=== PATIENT | female | born 1935 | race Caucasian/White ===

== ENCOUNTER 2016-11-03 01:41 | Observation (INO) | payer OTHER ==
[2016-11-03] MEDS ORDERED: NS 1,000 ML IV ONE (01:44)
--- NOTE | 2016-11-03 01:44 | EDPHY ---
H & P HPI/ROS: HPI CHIEF COMPLAINT: Left arm and left leg weakness now resolved HISTORY OF PRESENT ILLNESS: This patient very pleasant 81-year-old female she presents to the emergency room by EMS for left-sided weakness left upper extremity and left lower extremity weakness. Patient tells me she is unsure exactly what time this started but she thinks it started around 09/1930. She called 911 as she tells me that the left side of her body felt wobbly and weak. She states the symptoms have now resolved. She denies any focal weakness anywhere, numbness or tingling she denies chest pain, shortness of breath or headache. She has no known cardiac history or neurological history. No history of strokes. She is not on any blood thinners. Upon arrival here in the emergency room I did read the ambulance and the ambulance [place] as she was paged out as a stroke alert however her symptoms have resolved and her neurological exam upon arrival is unremarkable there is no weakness. She has no complaints at this time. Her NIH stroke scale upon arrival to the emergency room at 1:42 a.m. is 0 Past Medical History: Anxiety, asthma, GERD, hyperlipidemia Past Surgical History: Denies significant surgical history Social History: Lives independently alone in a private residence Family History: Noncontributory ROS REVIEW OF SYSTEMS: A comprehensive 10 point review of systems is otherwise negative aside from elements mentioned in the history of present illness. Exam Constitutional triage nursing summary reviewed, vital signs reviewed, awake/ alert. Eyes normal conjunctivae and sclera, EOMI, PERRLA. HENT normal inspection, atraumatic, moist mucus membranes, no epistaxis, neck supple/ no meningismus, no raccoon eyes. Respiratory clear to auscultation bilaterally, normal breath sounds, no respiratory distress, no wheezing. Cardiovascular rate normal, regular rhythm, no murmur, no edema, distal pulses normal. Gastrointestinal soft, non-tender, no rebound, no guarding, normal bowel sounds, no distension, no pulsatile mass. Genitourinary no CVA tenderness. Musculoskeletal no midline vertebral tenderness, full range of motion, no calf swelling, no tenderness of extremities, no meningismus, good pulses, neurovascularly intact. Skin pink, warm, & dry, no rash, skin atraumatic. Neurologic specifically this patient's neurological exam is unremarkable she has no focal weakness anywhere she has good statistical engineer strength bilaterally, good strength 5/5 in her left lower extremity and right lower extremity, 5/5 strength right upper and left upper extremity, cranial nerves are all intact, no decrease in sensation, awake, alert and oriented x 3, AAOx3, moves all 4 extremities equally, motor intact, sensory intact, CN II-XII intact, normal cerebellar, normal vision, normal speech. Psychiatric normal mood/affect. Heme/Lymph/Immune no lymphadenopathy. Differential Diagnosis: includes but is not limited to in a particular order, TIA, ACS, dehydration, electrolyte abnormality, cardiac arrhythmia Medical Decision Making: This patient had an IV established she will have a CT scan of her head without contrast and CT angiogram head and neck due to her symptoms that are now resolved of left upper and left lower extremity weakness. Given that her symptoms resolved in her NIH stroke scale is 0 upon arrival I have counseled her as a stroke alert as she no longer has symptoms. She will still have a stroke workup including EKG, blood work, troponin, CT scan will most likely need to be admitted for further evaluation at this time it appears she may have had a TIA. Re-evaluation: EKG interpretation by me on record in [employer] system. Impression time of EKG 1:52 a.m., this is sinus rhythm rate of 72, I do not appreciate acute ischemic changes specifically no ST elevation, ST depression, T-wave abnormality no prolonged intervals. CT scan of the head without IV contrast The results of the study are negative for acute infarct or bleed The study was read by Dr. Rossi. I viewed the images myself on the PACS system. CT scan of the angiogram head and neck. The results of the study are negative for significant acute disease The study was read by Dr. Rossi I viewed the images myself on the PACS system. ED x-ray chest one view negative for acute cardiopulmonary disease image interpreted by myself. 0253: re-examination at this time this patient is at her neurological baseline. I did speak with her son and [id number] at bedside they do tell me that she has a little bit of dementia and cognitive decline. They feel that she is at her neurological baseline. She is moving everything appropriately, no weakness, her CT head and CT angiogram head and neck are unremarkable for acute stroke. Her NIH stroke scale remained 0 she has no focal deficit this time. I did update her she understands she will be admitted to the hospital for further evaluation of left-sided weakness that is now resolved most likely TIA. Source: Patient, EMS - Personal History Tetanus Vaccine Date: UNSURE Constitutional: Initial Vital Signs Temperature (C) 36.5 C 11/03/16 01:45 Heart Rate 75 11/03/16 01:45 Respiratory Rate 18 11/03/16 01:45 Blood Pressure 189/76 H 11/03/16 01:45 O2 Sat (%) 94 11/03/16 01:45 O2 Delivery Mode Room Air Allergies/Adverse Reactions: No Known Allergies Allergy (Unverified 10/30/12 12:54) Home Medications: Medication Instructions Recorded Albuterol Sulfate [Proventil Hfa] 2 puffs IH BID 10/30/12 Fluticasone/Salmeter 500/50Mcg 1 puffs IH BIDI 10/30/12 [Advair 500/50 (RX)] Herb/Supp 10/30/12 Levothyroxine [Synthroid 50 mcg 50 mcg PO DAILY06 10/30/12 (RX)] Nortriptyline HCl 10 mg PO HS 10/30/12 Pharmacy Complete 10/30/12 10/30/12 Ranitidine HCl [Ranitidine HCl 300 300 mg PO HS 10/30/12 mg] Simvastatin [Zocor 10 mg (RX)] 10 mg PO DAILY18 10/30/12 Medical Decision Making - Data Points Laboratory Results: Laboratory Results 11/03/16 01:50 11/03/16 01:50 11/03/16 01:50 WBC 5.99 10^3/uL (3.80-9.50) RBC 4.31 10^6/uL (4.18-5.33) Hgb 13.2 g/dL (12.6-16.3) POC Hgb 13.6 gm/dL (12.3-15.9) Hct 40.0 % (38.0-47.0) POC Hct 40 % (35.5-47.5) MCV 92.8 fL (81.5-99.8) MCH 30.6 pg (27.9-34.1) MCHC 33.0 g/dL (32.4-36.7) RDW 14.2 % (11.5-15.2) Plt Count 251 10^3/uL (150-400) MPV 9.5 fL (8.7-11.7) Neut % (Auto) 55.3 % (39.3-74.2) Lymph % (Auto) 30.1 % (15.0-45.0) [place] % (Auto) 8.7 % (4.5-13.0) Eos % (Auto) 3.8 % (0.6-7.6) Baso % (Auto) 0.8 % (0.3-1.7) Nucleat RBC Rel Count 0.0 % (0.0-0.2) Absolute Neuts (auto) 3.31 10^3/uL (1.70-6.50) Absolute Lymphs (auto) 1.80 10^3/uL (1.00-3.00) Absolute Monos (auto) 0.52 10^3/uL (0.30-0.80) Absolute Eos (auto) 0.23 10^3/uL (0.03-0.40) Absolute Basos (auto) 0.05 10^3/uL (0.02-0.10) Absolute Nucleated RBC 0.00 10^3/uL (0-0.01) Immature Gran % 1.3 H % (0.0-1.1) Immature Gran # 0.08 10^3/uL (0.00-0.10) PT 12.6 SEC (12.0-15.0) INR 0.95 (0.83-1.16) APTT 27.0 SEC (23.0-38.0) POC Sodium 143 mEq/L (134-144) Sodium 145 H mEq/L (134-144) POC Potassium 3.5 mEq/L (3.3-5.0) Potassium 3.7 mEq/L (3.5-5.2) POC Chloride 110 H mEq/L (96-108) Chloride 110 mEq/L (97-110) Carbon Dioxide 23 mEq/l (22-31) Anion Gap 12 mEq/L (8-16) POC BUN 20 mg/dL (7-23) BUN 19 mg/dL (7-23) Creatinine 0.7 mg/dL (0.6-1.0) POC Creatinine 0.7 mg/dL (0.6-1.2) Estimated GFR > 60 Glucose 100 mg/dL (70-100) POC Glucose 101 H mg/dL (70-100) Calcium 9.6 mg/dL (8.5-10.4) Magnesium 2.0 mg/dL (1.6-2.3) Total Bilirubin 0.4 mg/dL (0.1-1.4) Conjugated Bilirubin 0.3 mg/dL (0.0-0.5) Unconjugated Bilirubin 0.1 mg/dL (0.0-1.1) AST 32 IU/L (14-46) ALT 34 IU/L (9-52) Alkaline Phosphatase 89 IU/L (38-126) Creatine Kinase 74 IU/L (0-156) CK-MB (CK-2) Fraction 1.20 ng/mL (0-3.19) Troponin I < 0.012 ng/mL (0-0.034) NT-Pro-B Natriuret Pep 89 pg/mL (0-450) Total Protein 7.1 g/dL (6.3-8.2) Albumin 4.0 g/dL (3.5-5.0) Lipase 225.0 IU/L (23-300) Medications Given: Discontinued Medications Sodium Chloride (Ns) 1,000 mls @ 0 mls/hr IV ONCE ONE PRN Reason: As Directed Stop: 11/03/16 01:45 Last Admin: 11/03/16 01:54 Dose: 1,000 mls Point of Care Test Results: 11/03/16 01:50 POC Sodium 143 POC Potassium 3.5 POC Chloride 110 H POC BUN 20 POC Creatinine 0.7 POC Glucose 101 H Departure - Departure Disposition: [facility] Inpatient Acute Clinical Impression: TIA (transient ischemic attack) Qualifiers: Transient cerebral ischemia type: unspecified Qualifier Code: (G45.9) Transient cerebral ischemic attack, unspecified Condition: Fair
[2016-11-03] MEDS ORDERED: IOPAMIDOL (ISOVUE 370) 100 ML BTL IV ONE ×2 (01:48→02:00)
--- NOTE | 2016-11-03 01:53 | CPEKG ---
Heart Rate: 72 RR Interval: 833 P-R Interval: 204 QRSD Interval: 82 QT Interval: 408 QTC Interval: 447 P [place]: 89 QRS [place]: 24 T Wave [place]: 43 EKG Severity - BORDERLINE ECG - EKG Impression: SINUS RHYTHM EKG Impression: PROBABLE LEFT ATRIAL ABNORMALITY Electronically Signed By: Edgar De Jesus 04-Nov-2016 04:14:35
[2016-11-03 02:12] LABS: % IMMATURE GRANULYOCYTES 1.3 % (0.0-1.1); ABSOLUTE IMMATURE GRANULOCYTES 0.08 10^3/uL (0.00-0.10); ADD DIFF? NO; ADD MORPH? NO; ADD SCAN? NO; ATYPICAL LYMPHOCYTE FLAG 10 (0-99); FRAGMENT RBC FLAG 0 (0-99); HEMOGLOBIN 13.2 g/dL (12.6-16.3); LEFT SHIFT FLG 10 (0-99); LIPEMIA HEMOLYSIS FLAG 80 (0-99); MEAN CELL HEMOGLOBIN 30.6 pg (27.9-34.1); MEAN CELL VOLUME 92.8 fL (81.5-99.8); MEAN PLATELET VOLUME 9.5 fL (8.7-11.7); PLATELET CLUMPS FLAG 20 (0-99); PLATELET COUNT 251 10^3/uL (150-400); RED BLOOD CELL COUNT 4.31 10^6/uL (4.18-5.33); RED CELL DISTRIBUTION WIDTH 14.2 % (11.5-15.2)
[2016-11-03 02:14] LABS: ALANINE AMINOTRANSFERASE 34 IU/L (9-52); ALKALINE PHOSPHATASE 89 IU/L (38-126); ANION GAP 12 mEq/L (8-16); ASPARTATE AMINOTRANSFERASE 32 IU/L (14-46); BILIRUBIN,TOTAL 0.4 mg/dL (0.1-1.4); BILIRUBIN-CONJUGATED 0.3 mg/dL (0.0-0.5); BILIRUBIN-UNCONJUGATED 0.1 mg/dL (0.0-1.1); CALCIUM 9.6 mg/dL (8.5-10.4); CARBON DIOXIDE 23 mEq/l (22-31); CHLORIDE 110 mEq/L (97-110); CREATININE 0.7 mg/dL (0.6-1.0); GLOMERULAR FILTRATION RATE > 60; GLUCOSE 100 mg/dL (70-100); POTASSIUM 3.7 mEq/L (3.5-5.2); SODIUM 145 mEq/L (134-144); TOTAL PROTEIN 7.1 g/dL (6.3-8.2)
[2016-11-03 02:26] LABS: INR 0.95 (0.83-1.16); PROTIME(PATIENT) 12.6 SEC (12.0-15.0)
[2016-11-03 02:29] LABS: TROPONIN I < 0.012 ng/mL (0-0.034)
[2016-11-03] MEDS ORDERED: ACETAMINOPHEN 325 MG TAB PO PRN (03:58)
[2016-11-03] MEDS ORDERED: ONDANSETRON 4 MG/2 ML VIAL IVP PRN (03:58)
--- NOTE | 2016-11-03 04:26 | GHP ---
[f rep st] HISTORY AND PHYSICAL DATE OF ADMISSION: 11/03/2016 CHIEF COMPLAINT: Left-sided weakness. HISTORY OF PRESENT ILLNESS: The patient is an 81-year-old female who had left upper and left lower e xtremity weakness at home. She lives independently. She called 911. On arrival to the emergency ro , her symptoms had totally resolved. History is vague as the patient does have some cognitive issu es and dementia. She describes it as a "bad feeling," and then she had a feeling that "again she fel t spongy." She was able to walk, and she did not have a complete hemiparesis. She did feel wobbly o n her feet. She now appears to be back to baseline. Her family is at bedside and confirms this is h er normal state. She does not take a daily aspirin. PAST MEDICAL HISTORY: 1. Dementia. 2. GERD. 3. Asthma. MEDICATIONS: Please see computer record for full detailed list. ALLERGIES: No known drug allergies. SOCIAL HISTORY: No smoking. One alcoholic beverage per day. She lives alone. REVIEW OF SYSTEMS: Complete review of systems obtained. Review of systems is negative regarding con stitutional, HEENT, GI, pulmonary, cardiovascular, , hematologic, musculoskeletal, endocrine, psych , except for positive pertinents as noted in HPI. FAMILY HISTORY: Reviewed, noncontributory to presenting complaint. PHYSICAL EXAMINATION: GENERAL: Well-developed, well-nourished female in no acute distress. VITAL S IGNS: Temperature is 36.5, pulse 66, blood pressure is 110/63, saturating 96% on 2 L. EYES: Normal conjunctivae. Pupils react to light. ENT: Normal ears and nose. Hearing intact. Normal teeth. Oropharynx moist. NECK: Trachea midline. No thyromegaly. CHEST: Normal respiratory effort. LUNG S: Clear to auscultation bilaterally. CARDIOVASCULAR: Regular rhythm. No murmur. No lower extrem ity edema. ABDOMEN: Soft, nontender. No hepatosplenomegaly. SKIN: Warm, dry, intact, without suzanna h. MUSCULOSKELETAL: No cyanosis or clubbing. NEUROLOGIC: Strength is 5/5 upper and lower extremit ies. Cranial nerves intact. Normal sensation to light touch. PSYCH: Awake, alert, oriented. Norm al mood and affect. Normal judgment and insight. Normal memory. Some slight short-term memory prob maday but otherwise quite appropriate. LABS: White count 5.99, hematocrit 40.0, platelets 251. Sodium 145, potassium 3.7, chloride 110, bi carb 23, BUN 19, creatinine 0.7, glucose 100. LFTs are normal. Troponins negative. BNP is 89. INR 0.95. EKG reviewed by me. My personal interpretation is normal sinus rhythm. No ST- or T-wave changes. C hest x-ray is negative. Head CT is negative. CT angiogram of the head and neck is negative. ASSESSMENT/PLAN: 1. Transient ischemic attack. She had transient left-sided weakness, and she presented to the ER as a stroke alert; however, symptoms had all resolved by the time she arrived. We will check an MRI of her brain. We will check an echocardiogram and monitor on telemetry. We will start her on a daily aspirin and check a lipid panel. Will consult PT/OT. 2. Dementia. This is mild, and she has returned to baseline. 3. Asthma. This is stable. COR STATUS: Full, although she would not want prolonged resuscitation. ADMISSION STATUS: Observation. She may go home tomorrow after TIA workup complete. DVT PROPHYLAXIS: She is at high risk. Will place her on subcu Lovenox. /[id number]/MODL
[2016-11-03 06:28] LABS: TROPONIN I < 0.012 ng/mL (0-0.034)
[2016-11-03 08:00] LABS: COLOR PALE YELLOW; LEUKOCYTE ESTERASE,URINE 3+ (NEGATIVE); NITRITE,URINE POSITIVE (NEGATIVE)
[2016-11-03 08:11] LABS: WBC,URINE 25-50 /hpf (0-3)
[2016-11-03 08:16] LABS: BACTERIA 2+ /hpf (NONE SEEN)
[2016-11-03] MEDS ORDERED: SENNOSIDES 1 TAB PO PRN (08:31)
[2016-11-03] MEDS: ASPIRIN 325 MG TAB PO SCH (08:36)
[2016-11-03] MEDS: ENOXAPARIN 40 MG/0.4 ML SYR SC SCH (08:36)
[2016-11-03] MEDS: CHOLECALCIFEROL VIT D3 1,000 UNITS TAB PO SCH (08:58)
[2016-11-03] MEDS: LEVOTHYROXINE 50 MCG TAB PO SCH (08:58)
[2016-11-03] MEDS ORDERED: Herbals/Supplements -Info Only PO SCH (09:00)
[2016-11-03] MEDS: FLUTICASONE/SALMETER 500/50MCG DISKUS IH SCH ×2 (10:00→20:50)
--- NOTE | 2016-11-03 10:43 | DX ---
AP chest x-ray 0154 hours. History: Chest pain. Findings: Comparison to October 30, 2012. Heart size remains within normal limits. Pulmonary vasculature is mildly prominent centrally. There i s mild peribronchial cuffing in the perihilar region right-side more than left. There is no consolida tion, effusion, or pneumothorax. The lungs are mildly hyper expanded similar to the prior study. Osse ous structures are unchanged. Impression: 1. Mild peribronchial cuffing in the perihilar region right-side greater than left. Findings are nons pecific but can be seen with bronchitis, viral process, or reactive airways disease. 2. Hyperexpanded lungs similar to the prior study compatible with underlying mild COPD.
--- NOTE | 2016-11-03 10:55 | MR ---
MRI of the Brain (Without Contrast) at 0932 hour Clinical Indication: TIA symptoms. Left-sided weakness has resolved.. Technique: T1-weighted images were acquired axially and sagittally from the foramen magnum to the ve rtex. Axial fast inversion recovery, fast T2-weighted, susceptibility weighted imaging, and diffusio n-weighted axial images were obtained without contrast. Findings: The ventricles, cisterns, and sulci are widened consistent with atrophy. No hydrocephalus, midline shift, herniation, or epidural/subdural hematomas. There is a small focus of signal void on susceptibility weighted imaging compatible with small focus of hemorrhage right anterior occipital lo be. This focus is less apparent on T1 and T2 weighted imaging. No abnormality seen in this location o n prior CT head or CT angiogram study of the head. No additional possible intracranial hemorrhage or mass. Diffusion weighted sequence demonstrates no acute infarct. Cerebellar tonsils are in normal pos ition. Pituitary gland is normal in size. Normal signal flow-void in the superior sagittal sinus, bas ilar artery, and bilateral internal carotid arteries indicating patency. Paranasal sinuses and mastoi d air cells are clear. Scattered hyperintense T2/FLAIR signal foci throughout bilateral cerebral whit e matter. Impression: 1. Mild to moderate age related cerebral atrophy. 2. A few nonspecific hyperintense T2/FLAIR signal abnormalities in the white matter of bilateral fron flaco and parietal lobes. Differential diagnosis includes microvascular ischemic disease, post-infectio us/post-inflammatory sequela, atypical demyelinating disease, or migraine-related sequela. 3. No acute infarct, hydrocephalus, mass effect, or herniation. 4. Small focus of signal void on susceptibility weighted imaging right anterior occipital lobe compat ible with small focus of blood products. This could represent tiny incidental occult vascular malform ation versus sequela from previous trauma with deposition of blood products.
--- NOTE | 2016-11-03 11:57 | HOSPPROG ---
Hospitalist Progress Note Assessment/Plan: 81y female with c/o weakness. Reviewed with Dr Goodwin. Cont TIA workup. Pt resting comfortably. Weakness resolved Baseline dementia Potentially home in 1-2 days. Objective: Vital Signs Temp Pulse Resp BP Pulse Ox 36.8 C 65 18 130/77 H 97 11/03/16 07:39 11/03/16 07:39 11/03/16 07:39 11/03/16 07:39 11/03/16 07:39 11/02/16 11/03/16 11/04/16 05:59 05:59 05:59 Intake Total 1090 Output Total 300 Balance 1090 -300 PT 12.6 SEC (12.0-15.0) 11/03/16 01:50 INR 0.95 (0.83-1.16) 11/03/16 01:50 - Physical Exam Constitutional: no apparent distress, not in pain Eyes: PERRL Ears, Nose, Mouth, Throat: moist mucous membranes, ears appear normal Cardiovascular: No JVD Respiratory: no respiratory distress Skin: warm, normal color Psychiatric: not anxious, not encephalopathic ICD10 Worksheet Patient Problems: Problems Problem Status Diagnosed TIA (transient ischemic attack) Acute Asthma without status asthmaticus Active Esophageal dysmotility Active
--- NOTE | 2016-11-03 13:51 | ECHO ---
[id number] + + [address] : : [place] [address] : : [phone] + + Adult Echocardiographic Report + + :Name: GALEN MIKEindiarenata Date: 11/03/2016 12:04 PM : : Hospital Admission Number: [id number] : :: 1935 Gender: Female Height: 64 in : :Age: 81 yrs Race: WH Weight: 118 lb : :Reason For Study: source of emboli : : BSA: 1.6 meters2: :History: tia : + + MMode/2D Measurements & Calculations IVSd: 0.69 cm RVDd: 2.3 cm FS: 35.5 % Ao root diam: LVPWd: 0.87 cm LVIDd: 3.6 cm EDV(Teich): 2.4 cm LVIDs: 2.3 cm 54.1 ml LA dimension: ESV(Teich): 3.1 cm 18.5 ml EF(Teich): 65.8 % LVLd ap4: 7.0 cm SV(MOD-sp4): EDV(MOD-sp4): 41.0 ml 65.0 ml LVLs ap4: 5.8 cm ESV(MOD-sp4): 24.0 ml EF(MOD-sp4): 63.1 % Normal Measurement Values: + + :LVIDd (3.5-5.7cm) IVSd (0.6-1.1cm) LVPWd (0.6-1.1cm) Aortic Root (2.0-3.7cm)Left Atrium (1.5-4.0cm): :LV Vol(d) (76-115ml) LV Vol(s) (29-48ml) Ejec Fraction (50-65%)PV Jimmy (0.6- 1.2m/s) TV Jimmy (0.4-1.0m/s) : :MV E Jimmy (0.8-1.0m/s)MV A Jimmy (0.3-1.0m/s)LVOT Jimmy (0.7-1.2m/s) Asc Ao Jimmy ( 0.9-1.8m/s) : + + Doppler Measurements & Calculations MV E max jimmy: Ao V2 max: LV V1 max: PA V2 max: 77.0 cm/sec 171.9 cm/sec 81.4 cm/sec 76.6 cm/sec MV A max jimmy: Ao max PG: LV V1 max PG: PA max P.0 cm/sec 11.8 mmHg 2.7 mmHg 2.3 mmHg MV E/A: 1.0 MV dec time: 0.26 sec RAP systole: 10.0 mmHg Left Ventricle The left ventricle is normal in size and function. There is normal left ventricular wall thickness. Ejection Fraction = 65%. No regional wall motion abnormalities noted. Right Ventricle The right ventricle is normal in size and function. Atria The left atrial size is normal. Right atrial size is normal. A dilated inferior vena cava suggests increased right atrial pressure. Mitral Valve The mitral valve is normal in structure and function. There is no mitral valve stenosis. There is mild mitral regurgitation. Tricuspid Valve The tricuspid valve is normal in structure and function. There is no tricuspid stenosis. There is trace to mild tricuspid regurgitation. Unable to estimate RVSP due to inadequate TR signal. Aortic Valve The aortic valve is trileaflet. There is mild aortic valve calcification. There is no aortic stenosis. There is no aortic insufficiency. Pulmonic Valve The pulmonic valve is not well visualized. Great Vessels The aortic root is not well visualized. Pericardium/Pleural There is no pericardial effusion. Conclusion A two-dimensional transthoracic echocardiogram with M-mode and Doppler was performed. There is no obvious source of embolus identified. If one is highly clinically suspected, then transesophageal echocardiography should be considered. The left ventricle is normal in size and function. Ejection Fraction = 65%. Normal appearing valvular structures. There is mild mitral regurgitation. There is trace to mild tricuspid regurgitation. Unable to estimate RVSP due to inadequate TR signal. The aortic root is not well visualized. Final Reading Physician: Raciel Reddy signed on 11/03/2016 01:50 PM Ordering Physician: Sofia Pastor Performed By: Courtney Aguilera
--- NOTE | 2016-11-03 14:05 | CT ---
CT Head (Without Contrast) November 03, 2016 Indication: Transient left-sided weakness. Technique: Standard noncontrast head CT protocol utilizing 5 mm thick collimated slices and field of view of 23 cm. Dose reduction techniques were utilized. Comparison: Head CT dated December 09, 2012. Findings: No intracranial hemorrhage, mass lesion, swelling, or extraaxial fluid collection. The isacc tricles are normal caliber and midline. The huitron and white matter has normal attenuation. No evidence of acute ischemia. Minimal atrophy and minimal periventricular low-attenuation white matter disease in the frontal and parietal lobes is unchanged. The bones are unremarkable. The paranasal sinuses are clear. Impression: Negative. No acute intracranial hemorrhage, subdural hematoma, or evidence of ischemia. The study was performed as an emergency on-call case and discussed by telephone with Dr. De Jesus at 2 :39 a.m. The final interpretation is concordant with the original communication.
--- NOTE | 2016-11-03 14:28 | CT ---
CT Angiography of the Head November 03, 2016 Clinical Indications: Transient left-sided weakness. R29.818 - Neurological changes strongly suggesti ng intracerebral aneurysm. Technique: During automated power injection of 75 mL of Isovue-370, thinly collimated spiral (volume tric) multidetector helical imaging was performed through the head. Independent three-dimensional [employer] workstation was used for additional manipulations of images by the radiologist. Dose reduction techniques were utilized. Findings: The anterior and posterior circulation is normal. No occlusion, filling defect, aneurysm, or vascular malformation. The intracranial venous system is normally opacified. No sagittal sinus thr ombosis. No enhancing intracranial mass. Impressions: 1. Normal arterial circulation. No evidence of embolic disease. 2. No sagittal sinus thrombosis. The study was performed as an emergency on-call case and discussed by telephone with Dr. De Jesus at 2 :50 a.m. The final interpretation is concordant with the original communication.
--- NOTE | 2016-11-03 14:38 | CT ---
CT Angiography of the Neck (With Contrast) November 03, 2016 Clinical Indications: Stroke alert. Transient unilateral left-sided weakness. Technique: During IV administration of 75 mL of Isovue-370 intravenously, helical multidetector data acquisition was obtained from the upper thorax cephalad through the skull base. The thinly collimate d data were manipulated in multiple projections on the 3D computer workstation by the radiologist. Do se reduction techniques were utilized. Findings: The cervicothoracic aorta is normal caliber and gives rise to normal four-vessel neck lili josiah. The carotid and vertebral arteries are widely patent. No dissection, occlusion, or ulcerated osman que. Eccentric calcified plaque in the right carotid bulb results in less than 20% stenosis of the or igin of the right internal carotid artery. Eccentric plaque in the left carotid bulb results in less than 10% narrowing of the carotid bulb and origin of the left internal carotid artery. Lung apices have diffuse mild peribronchial thickening and a partially obscured 1 cm groundglass nodu le in the superior segment left lower lobe on image 21 of series 5. No enlarged lymph node or mass th roughout the neck. The left half of the thyroid gland has been surgically removed. Impression: 1. Widely patent carotid and vertebral arteries. Mild bilateral carotid plaque results in no signific ant stenosis. 2. No lymphadenopathy or mass. 3. Indeterminate 1-cm groundglass nodule superior segment left lower lobe. Recommend follow-up noncon trast chest CT in six months to assure resolution. The study was performed as an emergency on-call case and discussed by telephone with Dr. De Jesus at 2 :50 a.m. The final interpretation is concordant with the original communication. Note: All stenoses are calculated using NASCET criteria.
--- NOTE | 2016-11-03 15:12 | GCON ---
[f rep st] CONSULTATION INPATIENT NEUROLOGY CONSULTATION NOTE DATE OF CONSULTATION: 11/03/2016 CHIEF COMPLAINT: Transient left-sided weakness. HISTORY OF PRESENT ILLNESS: This is an 81-year-old female with a prior diagnosis of dementia. 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 The patient says she cannot remember the event and does say she thinks she was c onfused at that time. She was brought to [facility] Emergency Room, but when she arr ived there her symptoms had all resolved. The patient states these symptoms have never occurred befo re or since. Her daughter is with her and does state that patient has some dementia at baseline. Cu rrently, the patient is normal with an NIH Stroke Scale of 0, although she did become slightly confus ed at times by the date, although she knew the month. REVIEW OF SYSTEMS: A 10-point review of systems was negative, except for what was placed in the HPI. PAST MEDICAL HISTORY: Dementia, GERD, asthma. SOCIAL HISTORY: No tobacco. FAMILY HISTORY: Noncontributory. PHYSICAL EXAM: VITAL SIGNS: Blood pressure 130/77, heart rate 65, respirations 18, saturating 97% o n room air, temperature 36.5 degrees Celsius, in normal sinus rhythm. GENERAL: In no acute distress . EYES: Funduscopic exam: Could not visualize optic discs. LUNGS: Clear to auscultation bilatera lly. No rhonchi or rales. HEART: Regular rate and rhythm. No murmurs. No carotid bruits ausculta ronald. NEUROLOGIC EXAM: 1. Mental status: Alert and oriented to person, place, month and year, but not exact date. 2. Memory: Appears slightly impaired to short-term memory, although overall fairly intact. Long-te rm memory intact. 3. Attends well. No speech problems. 4. Cranial nerves: Pupils equal, round, reactive to light. Visual castro full to confrontation. E xtraocular muscles intact. Bilateral face intact to sensation and motor movement. Hearing intact to conversation. Uvula raises symmetrically. Tongue protrudes midline. Traps 5/5 strength. 5. Motor exam: Normal tone and strength in all 4 extremities. 6. Sensory exam: All 4 extremities intact to light touch. 7. Reflexes: Bilateral biceps, brachioradialis, patellae 2/4. 8. Coordination: Bilateral [id number], ixlt-si-datc, rapid alternating movements are normal. 9. Gait: Deferred. 10. NIH stroke scale: 0. LABORATORY DATA: 1. Labs November 03, 2016:. a. CBC unremarkable. Coagulation panel unremarkable. b. UA with 3+ leukocyte esterase and positive nitrites. c. CMP has a sodium of 145, TSH normal, troponin negative. 2. Radiology November 03, 2016:. a. A head CT shows no acute changes. I personally visualized this study. b. A CT angiogram of the head and neck shows no significant arterial problems. There is an incident ally noted pulmonary nodule. ASSESSMENT: 1. Transient left arm and leg weakness in the setting of confusion on November 03, 2016: Differential diagnosis includes transient ischemic attack versus acute confusional state from ing or a pos sible urinary tract infection. I will proceed with a stroke evaluation. 2. Preexisting dementia. 3. Positive urinalysis concerning for possible urinary tract infection. 4. Incidentally noted pulmonary nodule. RECOMMENDATIONS: 1. For incidentally imaged pulmonary nodule, refer to outpatient primary care provider. 2. Brain MRI without contrast. 3. Transthoracic echocardiogram. 4. 24-hour telemetry. 5. Lipid panel. 6. HbA1c. 7. Urine culture. 8. Blood pressure goal less than 220/120. It MRI excludes active stroke, then blood pressure goal i s less than 140/90. 9. Begin aspirin 325 mg daily. Neurology service will continue to follow closely. I suspect that most likely the patient will be ab le to be discharged tomorrow. Dr. Diop will be assuming care of this service tomorrow. /[id number]/MODL
[2016-11-03 20:19] VITALS: RESP 16
[2016-11-03] MEDS ORDERED: MIRTAZAPINE 15 MG TAB PO SCH (21:00)
[2016-11-03] MEDS: ALBUTEROL 60 PUFFS/8 GM MDI IH PRN (21:16)
[2016-11-04] MEDS: LEVOTHYROXINE 50 MCG TAB PO SCH (04:32)
[2016-11-04 05:26] LABS: CHOLESTEROL 199 mg/dL (140-220); CHOLESTEROL/HDL RATIO 3.69 RATIO (1.00-4.44); HIGH DENSITY LIPOPROTEIN 54 mg/dL (40-85); LDL/HDL RATIO 2.39 RATIO (1.00-3.22); LOW DENSITY LIPOPROTEIN 129 mg/dL (80-100); NON-HIGH DENSITY LIPOPROTEIN 145 mg/dL (90-129); TRIGLYCERIDE 82 mg/dL (35-135); VERY LOW DENSITY LIPOPROTEINS 16 mg/dL (8-25)
[2016-11-04 07:44] VITALS: BP 132/68; PULSE 68; TEMP 97.9; O2SAT 92
[2016-11-04] MEDS: FLUTICASONE/SALMETER 500/50MCG DISKUS IH SCH (08:15)
[2016-11-04] MEDS: ENOXAPARIN 40 MG/0.4 ML SYR SC SCH (08:22)
[2016-11-04] MEDS: CHOLECALCIFEROL VIT D3 1,000 UNITS TAB PO SCH (08:22)
[2016-11-04] MEDS ORDERED: ASPIRIN EC 81 MG TAB PO SCH (09:00)
[2016-11-04] MEDS: ALBUTEROL 60 PUFFS/8 GM MDI IH PRN (09:13)
--- NOTE | 2016-11-04 09:24 | NEUROPROG ---
Assessment: BACKGROUND: 81 yo woman with a history of dementia who presented to our facility 11/03 with reported left arm and leg weakness described as "wobbly" and "spongy" per the record. Weakness had resolved prior to getting to the ED. INTERVAL HISTORY: 11/04: Patient not quite sure why she is here - denies ever having left-sided weakness/difficulty. States she thinks she's here for asthma attack. No neurologic complaints today. Eager to discuss her pulmonary situation with the hospitalist. EXAM: VS reviewed in EMR. SBPs 130s-150s last 24h. GEN: WDWN sitting in NAD HEENT: NCAT, no scalp tenderness, oropharynx clear CV: RRR s1 s2 wo m/r/c/g. Carotid pulses 2+ wo bruit NIHSS 0 MS: awake, alert, oriented to all spheres except date and situation. Speech nondysarthric. No language disturbance. Follows commands. Attends to both sides. Episodic memory impairment evident. Poor insight. Adequate fund of knowledge. CN: pupils 3mm round reactive. VFF. Primary gaze centered. Full ocular motility. Facial sensation preserved. Face symmetric. Palatoglossal movements intact. Shoulder shrug strong. MOTOR: normal bulk/tone. Fine postural tremor. Full power. SENSORY: intact LT/PP throughout and symmetric wo extinction COORD: no ataxia FN/HS REFLEX: plantars down. No clonus. DTRs 2+/4 GAIT: rises unassisted with normal gait pattern DATA: Labs reviewed in EMR LDL 129 A1c pending Urine culture pending UA with pos nitrite, LE, WBCs and bacteria MRI brain wo - global volume loss, subcortical chronic microvascular ischemic changes, nothing acute CTA head/neck - widely patent carotids, vertebrals and intracranial circulation TTE - preserved EF, no masses/thrombi, no bubble study done IMPRESSION: // ? LEFT ARM/LEG WEAKNESS - RESOLVED // DEMENTIA // BACTERURIA Patient with reported episode of vague left arm and leg dysfunction. Could have been a right hemispheric TIA, though, no obvious source identified. May be related to possible UTI (low brain reserve given dementia could manifest with neurologic signs, despite no symptoms). Could have also been confusional episode related to dementia. Regardless, will treat as if it was a TIA. - cont ASA 325mg daily - goal normotension - goal normoglycemia with A1c < 6.5 - add statin for LDL goal < 70 - stroke education provided including signs/symptoms and calling 911 at onset of neurologic deficit - PT/OT/WEB ANALYTICS DEVELOPER consult - investigation/management of bacteruria per primary team - delirium precautions while in hospital - OK for discharge from neuro perspective - followup with PCP for vascular risk factor management Objective: Vital Signs Temp Pulse Resp BP Pulse Ox 36.6 C 68 16 132/68 H 92 11/04/16 07:40 11/04/16 07:40 11/04/16 07:40 11/04/16 07:40 11/04/16 07:40 11/03/16 11/04/16 11/05/16 05:59 05:59 05:59 Intake Total 1090 800 Output Total 1875 Balance 1090 -1075 PT 12.6 SEC (12.0-15.0) 11/03/16 01:50 INR 0.95 (0.83-1.16) 11/03/16 01:50 Allergies/Adverse Reactions: No Known Allergies Allergy (Unverified 10/30/12 12:54)
[2016-11-04] MEDS ORDERED: SULFAMETHOX/TMP 800/160 MG 1 TAB PO ONE (09:53)
--- NOTE | 2016-11-04 09:53 | PDDCSUM ---
Discharge Summary Discharge Summary: Dates of service 11/03-11/04/16 Hospital course by problem: # TIA: presenting with transient left upper and lower extremity weakness, w/u including tele monitoring, echo, brain mri, head and neck CTA without acute findings. Sxs completely resolved. Neuro evaluated. Recommending asa 325 daily, LDL goal < 70 (started on statin), BP control. Reviewed care plan with patient and her daughter, they understand and plan to f/u at [facility] for ongoing mgmt. # UTI: patient with bacturia and cultures pending, no real urinary complaints however given presentation concern that there may be UTI contributing to her neuro complaints. Will treat with bactrim for a short course. # dementia: at baseline per her daughter, has issues with short term memory on evaluation # htn: only one reading elevated above goal for her while in house, will defer initiation of any bp meds for now and recommend she f/u with her pcp for ongoing mgmt # pulm nodule: non specific and noted on neck ct. Repeat imaging recommended in 6 months # RAD: no e/o acute exacerbation, continue usual mgmt Discharge required > 35 minutes of care, more than half in face to face discussion with patient and her daughter regarding f/u care plans
[2016-11-04] MEDS: ASPIRIN 325 MG TAB PO SCH (10:08)
== END 2016-11-04 12:03 | disposition home or self-care (01) ==
LOC: EDUNIT# → INTOOBSV 02:51 → F3N 03:23
PROVIDERS: ADMIT Internal Medicine; ATTEND Internal Medicine
DX: G45.9 Transient cerebral ischemic attack, unspecified (principal); N39.0 Urinary tract infection, site not specified; J45.909 Unspecified asthma, uncomplicated; K21.9 Gastro-esophageal reflux disease without esophagitis; F03.90 Unspecified dementia, unspecified severity, without behavioral disturbance, psychotic disturbance, mood disturbance, and anxiety; R91.1 Solitary pulmonary nodule; E78.00 Pure hypercholesterolemia, unspecified
CPT/HCPCS: 70450; 70496; 70498; 70551; 71010; 92523; 93005; 93306; 96360; 97161; 97165; 99285; G0378; J1650; Q9967; 82947-QW

== ENCOUNTER 2017-05-15 08:35 | Observation (INO) | payer OTHER ==
--- NOTE | 2017-05-15 08:47 | CPEKG ---
Heart Rate: 67 RR Interval: 896 P-R Interval: 192 QRSD Interval: 82 QT Interval: 416 QTC Interval: 439 P [place]: 79 QRS [place]: 44 T Wave [place]: 65 EKG Severity - NORMAL ECG - EKG Impression: SINUS RHYTHM Electronically Signed By: Cal Khoury 16-May-2017 14:14:13
[2017-05-15 09:02] LABS: ANION GAP 14 mEq/L (8-16); CALCIUM 9.5 mg/dL (8.5-10.4); CARBON DIOXIDE 21 mEq/l (22-31); CHLORIDE 112 mEq/L (97-110); CREATININE 0.8 mg/dL (0.6-1.0); GLOMERULAR FILTRATION RATE > 60; GLUCOSE 101 mg/dL (70-100); POTASSIUM 3.8 mEq/L (3.5-5.2); SODIUM 147 mEq/L (134-144)
--- NOTE | 2017-05-15 09:05 | EDPHY ---
H & P Stated Complaint: syncope HPI/ROS: Chief Complaint: Syncope HPI: 81-year-old woman who is been in her normal state health, had a syncopal event after her walk this morning. Patient states that she got up and felt normal. Went for usual 1 mile walk. Came back to her residence and was talking with someone outside. She then came in and had a syncopal episode in the hallway. Patient denies any preceding palpitations or chest pain. Does not have a history of syncope in the past. Denies a history of coronary artery disease. No family history of sudden cardiac . No recent illness. Patient did hit her head and is complaining of pain in the right side of the back of her head. She states that when she woke up she felt a little confused. On EMS arrival the patient was awake and alert. Patient states she still feels a bit confused. ROS: 10 point Review of Systems is negative except as noted in the HPI. PMH: Patient is unsure denies history of coronary artery disease, lung disease , kidney disease Social History: No smoking, no alcohol, no recreational drug use Family History: non-contributory Physical Exam: Gen: Awake, Alert, No Distress HEENT: She has a large scalp hematoma on her right occipital scalp with tenderness Nose: no rhinorrhea Eyes: PERRLA, EOMI Mouth: Moist mucosa Neck: Supple, no JVD Chest: nontender, lungs clear to auscultation Heart: S1, S2 normal, no murmur Abd: Soft, non-tender, no guarding Back: no CVA tenderness, no midline tenderness Ext: no edema, non-tender Skin: no rash Neuro: CN II-XII intact, Sensation grossly intact, Strength 5/5 in bilateral upper and lower extremities - Personal History Tetanus Vaccine Date: UNSURE - Medical/Surgical History Hx Asthma: Yes Hx Chronic Respiratory Disease: No Hx Diabetes: No Hx Cardiac Disease: No Hx Renal Disease: No Hx Cirrhosis: No Hx Alcoholism: No Hx HIV/AIDS: No Hx Splenectomy or Spleen Trauma: No Other PMH: asthma - Social History Smoking Status: Never smoked Constitutional: Initial Vital Signs Temperature (C) 36.7 C 05/15/17 08:42 Heart Rate 67 05/15/17 08:42 Respiratory Rate 18 05/15/17 08:42 Blood Pressure 147/82 H 05/15/17 08:42 O2 Sat (%) 95 05/15/17 08:42 O2 Delivery Mode Room Air Allergies/Adverse Reactions: No Known Allergies Allergy (Verified 05/15/17 08:42) Home Medications: Medication Instructions Recorded Albuterol [Proventil Inhaler HFA 1 - 2 puffs IH Q4H PRN 11/03/16 (*)] Cholecalciferol Vit D3 [Vitamin D3 1,000 units PO DAILY 11/03/16 (*)] Fluticasone/Salmeter 500/50Mcg 1 puffs IH BID 11/03/16 [Advair 500/50 (*)] Herbals/Supplements -Info Only 1 ea PO DAILY 11/03/16 Levothyroxine [Synthroid 50 mcg 50 mcg PO DAILY06 11/03/16 (*)] Mirtazapine 7.5 mg PO HS 11/03/16 Sennosides [Senokot] 1 - 2 each PO DAILY PRN 11/03/16 Acetaminophen [Tylenol 325mg (*)] 650 mg PO Q4 PRN #0 tab 11/04/16 Aspirin [Aspirin 325 mg (*)] 325 mg PO DAILY #30 tab 11/04/16 Atorvastatin Calcium [Lipitor 40 40 mg PO DAILY #30 tab 11/04/16 mg (*)] Sulfamethox/Tmp 800/160 mg 1 tab PO BID #6 tab 11/04/16 [Bactrim Ds] Medical Decision Making - Diagnostics EKG Interpretation: ECG time 8:42 a.m. sinus rhythm with a rate of 67, normal axis, normal intervals , no acute ST or T-wave changes. Impression: Normal ECG. Imaging Results: CT scan is negative for acute intracranial pathology per Dr. Lee. Imaging: Discussed imaging studies w/ fisher scallop Radiologist ED Course/Re-evaluation: Patient remains symptom-free but is still confused. I have discussed with the Lg Ellis. He states that there are no beds at [facility] he is happy for the patient to remain at [facility]. He is updated patient's past medical history and medications. Patient is currently symptom free. I have discussed with Shasta Jorge, hospitalist. Will admit to telemetry under Dr. Charlton. - Data Points Laboratory Results: Laboratory Results 05/15/17 08:40 05/15/17 08:40 05/15/17 05/15/17 05/15/17 08:40 08:40 08:38 WBC 6.48 10^3/uL 10^3/uL (3.80-9.50) RBC 4.50 10^6/uL 10^6/uL (4.18-5.33) Hgb 13.6 g/dL g/dL (12.6-16.3) POC Hgb 14.3 gm/dL gm/dL (12.6-16.3) Hct 41.5 % % (38.0-47.0) POC Hct 42 % % (38-47) MCV 92.2 fL fL (81.5-99.8) MCH 30.2 pg pg (27.9-34.1) MCHC 32.8 g/dL g/dL (32.4-36.7) RDW 14.2 % % (11.5-15.2) Plt Count 249 10^3/uL 10^3/uL (150-400) MPV 9.9 fL fL (8.7-11.7) Neut % (Auto) 61.3 % % (39.3-74.2) Lymph % (Auto) 27.3 % % (15.0-45.0) [place] % (Auto) 7.4 % % (4.5-13.0) Eos % (Auto) 2.6 % % (0.6-7.6) Baso % (Auto) 0.6 % % (0.3-1.7) Nucleat RBC Rel Count 0.0 % % (0.0-0.2) Absolute Neuts (auto) 3.97 10^3/uL 10^3/uL (1.70-6.50) Absolute Lymphs (auto) 1.77 10^3/uL 10^3/uL (1.00-3.00) Absolute Monos (auto) 0.48 10^3/uL 10^3/uL (0.30-0.80) Absolute Eos (auto) 0.17 10^3/uL 10^3/uL (0.03-0.40) Absolute Basos (auto) 0.04 10^3/uL 10^3/uL (0.02-0.10) Absolute Nucleated RBC 0.00 10^3/uL 10^3/uL (0-0.01) Immature Gran % 0.8 % % (0.0-1.1) Immature Gran # 0.05 10^3/uL 10^3/uL (0.00-0.10) POC Sodium 144 mEq/L mEq/L (134-144) Sodium 147 mEq/L H mEq/L (134-144) POC Potassium 3.7 mEq/L mEq/L (3.3-5.0) Potassium 3.8 mEq/L mEq/L (3.5-5.2) POC Chloride 107 mEq/L mEq/L (97-110) Chloride 112 mEq/L H mEq/L (97-110) Carbon Dioxide 21 mEq/l L mEq/l (22-31) Anion Gap 14 mEq/L mEq/L (8-16) POC BUN 18 mg/dL mg/dL (7-23) BUN 18 mg/dL mg/dL (7-23) Creatinine 0.8 mg/dL mg/dL (0.6-1.0) POC Creatinine 0.8 mg/dL mg/dL (0.6-1.0) Estimated GFR > 60 Glucose 101 mg/dL H mg/dL (70-100) POC Glucose 105 mg/dL H mg/dL (70-100) Calcium 9.5 mg/dL mg/dL (8.5-10.4) Troponin I < 0.012 ng/mL ng/mL (0-0.034) Point of Care Test Results: 05/15/17 08:38 POC Sodium 144 POC Potassium 3.7 POC Chloride 107 POC BUN 18 POC Creatinine 0.8 POC Glucose 105 H Departure - [facility] Clinical Impression: Syncope Condition: Fair Referrals: Patient,NotPresent [Primary Care Provider] - As per Instructions
[2017-05-15 09:08] LABS: % IMMATURE GRANULYOCYTES 0.8 % (0.0-1.1); ABSOLUTE IMMATURE GRANULOCYTES 0.05 10^3/uL (0.00-0.10); ADD DIFF? NO; ADD MORPH? NO; ADD SCAN? NO; ATYPICAL LYMPHOCYTE FLAG 0 (0-99); FRAGMENT RBC FLAG 0 (0-99); HEMATOCRIT 41.5 % (38.0-47.0); HEMOGLOBIN 13.6 g/dL (12.6-16.3); LEFT SHIFT FLG 0 (0-99); LIPEMIA HEMOLYSIS FLAG 80 (0-99); MEAN CELL HEMOGLOBIN 30.2 pg (27.9-34.1); MEAN CELL HEMOGLOBIN CONCENTR. 32.8 g/dL (32.4-36.7); MEAN CELL VOLUME 92.2 fL (81.5-99.8); MEAN PLATELET VOLUME 9.9 fL (8.7-11.7); PLATELET CLUMPS FLAG 0 (0-99); PLATELET COUNT 249 10^3/uL (150-400); RED CELL DISTRIBUTION WIDTH 14.2 % (11.5-15.2)
[2017-05-15 09:14] LABS: TROPONIN I < 0.012 ng/mL (0-0.034)
[2017-05-15] MEDS ORDERED: ONDANSETRON DISINTEGRATING 4 MG TAB PO PRN (11:14)
[2017-05-15] MEDS ORDERED: ONDANSETRON 4 MG/2 ML VIAL IVP PRN (11:14)
[2017-05-15] MEDS ORDERED: NS 1,000 ML IV SCH (11:15)
[2017-05-15] MEDS ORDERED: ALBUTEROL 60 PUFFS/8 GM MDI IH PRN (11:16)
[2017-05-15] MEDS ORDERED: ALBUTEROL 200 PUFFS/18 GM MDI IH PRN (11:26)
--- NOTE | 2017-05-15 12:58 | GHP ---
[f rep st] HISTORY AND PHYSICAL DATE OF ADMISSION: 05/15/2017 The patient is a pleasant 81-year-old female with a history of hyperlipidemia and asthma who present s with a syncopal episode today. She was in her usual state of health today. She went for a 1 mile walk which she always does and about 5 minutes later, she had syncope where she fell down, she hit her head. She had no prodrome. She denies any antecedent palpitations, chest pain, shortness of br eath or pleuritic chest pain. She does not have heart failure symptoms such as PND, orthopnea, or l ower extremity edema. She has not had recent nausea, vomiting and diarrhea and declines difficulty with oral intake. She does not take any antihypertensives or marleni agents. She has no previous his tory of syncope, no previous history of VTE and no family history of sudden . REVIEW OF SYSTEMS: Complete 10-point review of systems conducted and negative except as noted in th e HPI. PAST MEDICAL HISTORY: 1. Hyperlipidemia. 2. Hypothyroidism. 3. Constipation. 4. Asthma. SOCIAL HISTORY: She does not smoke cigarettes. She has 1 glass of wine per day. She lives at [facility]. She is a . FAMILY HISTORY: Negative for sudden . PHYSICAL EXAMINATION: VITAL SIGNS: Temp 36.7, blood pressure 147/82, pulse 67, breathing 18 times a minute, 95% on room air. GENERAL: No acute distress. HEENT: Sclerae anicteric. Oropharynx gloria ar. Mucous membranes are moist. NECK: Supple without lymphadenopathy or JVD. LUNGS: Clear to au scultation bilaterally. HEART: S1, S2. ABDOMEN: Soft, nontender, nondistended. LOWER EXTREMITIE S: Without edema. Calves nontender. SKIN: Without rash. NEUROLOGIC: Exam is nonfocal. LABS: White count 6.5, hematocrit 41, platelets 249,000. Sodium 147, potassium 3.8, chloride 112, bicarb 21, BUN 18, creatinine 0.8, glucose 101, troponin less than 0.012. Chest x-ray interpreted by me shows no acute cardiopulmonary disease. She had a pulmonary nodule se en during a chest x-ray here in October that is not noted on this chest x-ray. I do not appreciate it. Noncontrast head CT shows atrophy. No acute intracranial hemorrhage, cerebrovascular atheroscl erosis, no definite acute infarct, mild microvascular ischemic gliosis and right parietal scalp shawn cameron without skull fracture. She has an EKG interpreted by me that shows sinus at 67 with normal ax is and intervals. There are no ST or T-wave changes. I discussed the case Dr. Aroldo Aldrich. ASSESSMENT/PLAN: 81-year-old female with syncope without prodrome. 1. Syncope: It is kind of a concerning story given that she had no prodrome and she did hit her he ad. It does not sound like vasovagal syncope. I think pulmonary embolism can be eliminated from th e differential given the absence of tachycardia, hypoxia or pleuritic pain. She is very modestly de hydrated, although I do not suspect that this is orthostatic or hypovolemic syncope. We will check orthostatics x1, follow her on the heart monitor and cycle troponins, perform echocardiogram. She d oes have an echocardiogram performed here earlier this year in October when she presented with a tra nsient ischemic attack. I do not think this represents a neurovascular event. 2. Pulmonary nodule, stable. 3. Asthma: Continue her albuterol. 4. Hyperlipidemia: Continue her statin. DISPOSITION: Observation status. Full code. /[id number]/MODL
[2017-05-15] MEDS: ACETAMINOPHEN 325 MG TAB PO PRN (15:02)
--- NOTE | 2017-05-15 15:12 | ECHO ---
[id number] + + [id number] : : [place] [address] : : [phone] + + Adult Echocardiographic Report + -----+ :Name: GALEN MIKE Date: 05/15/2017 01:12 PM BP: 156/82 mmHg : : Hospital Admission Number: [id number] Location : 205: :: 1935 Gender: Female Height: 64 in : :Age: 81 yrs Race: WH Weight: 114 lb : :Reason For Study: syncope : : BSA: 1.5 meters2 : :History: syncope : + -----+ MMode/2D Measurements \T\ Calculations IVSd: 0.80 cm RVDd: 2.5 cm FS: 42.8 % Ao root diam: LVPWd: 0.75 cm LVIDd: 3.4 cm EDV(Teich): 2.6 cm LVIDs: 2.0 cm 47.9 ml ESV(Teich): 12.0 ml EF(Teich): 75.0 % LVLd ap4: 7.4 cm SV(MOD-sp4): EDV(MOD-sp4): 47.0 ml 71.0 ml LVLs ap4: 6.1 cm ESV(MOD-sp4): 24.0 ml EF(MOD-sp4): 66.2 % Normal Measurement Values: + + :LVIDd (3.5-5.7cm) IVSd (0.6-1.1cm) LVPWd (0.6-1.1cm) Aortic Root (2.0-3.7cm)Left Atrium (1.5-4.0cm): :LV Vol(d) (76-115ml) LV Vol(s) (29-48ml) Ejec Fraction (50-65%)PV Jimmy (0.6- 1.2m/s) TV Jimmy (0.4-1.0m/s) : :MV E Jimmy (0.8-1.0m/s)MV A Jimmy (0.3-1.0m/s)LVOT Jimmy (0.7-1.2m/s) Asc Ao Jimmy ( 0.9-1.8m/s) : + + Doppler Measurements \T\ Calculations MV E max jimmy: Ao V2 max: LV V1 max: PA V2 max: 86.9 cm/sec 151.2 cm/sec 91.3 cm/sec 76.0 cm/sec MV A max jimmy: Ao max P.1 mmHg LV V1 max PG: PA max P.8 cm/sec 3.3 mmHg 2.3 mmHg MV E/A: 0.91 MV dec time: 0.24 sec Left Ventricle The left ventricle is normal in size and function. There is normal left ventricular wall thickness. Ejection Fraction = 65%. No regional wall motion abnormalities noted. Right Ventricle The right ventricle is normal in size and function. Atria The left atrial size is normal. Right atrial size is normal. Mitral Valve The mitral valve is normal in structure and function. There is no mitral valve stenosis. There is trace to mild mitral regurgitation. Tricuspid Valve The tricuspid valve is normal in structure and function. There is no tricuspid stenosis. There is trace tricuspid regurgitation. Aortic Valve The aortic valve is trileaflet. There is no aortic stenosis. There is no aortic insufficiency. Pulmonic Valve The pulmonic valve is normal in structure and function. Mild pulmonic valvular regurgitation. Great Vessels The aortic root is normal size. Pericardium/Pleural There is no pericardial effusion. Conclusion A two-dimensional transthoracic echocardiogram with M-mode and Doppler was performed. Normal LV size and function. Ejection Fraction = 65%. Normal wall motion. Normal appearing cardiac vavles. There is trace to mild mitral regurgitation. There is trace tricuspid regurgitation. Mild pulmonic valvular regurgitation. Final Reading Physician: Raciel Fry signed on 05/15/2017 03:11 PM Ordering Physician: Angel Charlton Performed By: Courtney Aguilera
[2017-05-15 20:44] LABS: COLOR YELLOW; LEUKOCYTE ESTERASE,URINE 3+ (NEGATIVE); NITRITE,URINE POSITIVE (NEGATIVE)
[2017-05-15 20:52] LABS: BACTERIA 4+ /hpf (NONE SEEN); HYALINE CASTS 25-50 /lpf (0-1); MUCUS TRACE /lpf (NONE-1+); RBC,URINE 50-182 /hpf (0-3); WBC,URINE 50-182 /hpf (0-3)
[2017-05-15] MEDS ORDERED: MIRTAZAPINE 15 MG TAB PO SCH (21:00)
[2017-05-15] MEDS ORDERED: MELATONIN 3 MG TAB PO SCH (21:00)
[2017-05-15] MEDS ORDERED: DOCUSATE SODIUM 100 MG CAP PO SCH (21:00)
[2017-05-15] MEDS ORDERED: NON-FORMULARY NEW DRUG (Melatonin [Melatonin 5 Mg] 5 MG) PO SCH (21:00)
[2017-05-15] MEDS ORDERED: NON-FORMULARY NEW DRUG (Mirtazapine [Mirtazapine] 15 MG) PO SCH (21:00)
[2017-05-15] MEDS: FLUTICASONE/SALMETER 500/50MCG DISKUS IH SCH (21:11)
[2017-05-16] MEDS: ACETAMINOPHEN 325 MG TAB PO PRN ×3 (00:14→09:37)
[2017-05-16 05:04] LABS: % IMMATURE GRANULYOCYTES 0.7 % (0.0-1.1); ABSOLUTE IMMATURE GRANULOCYTES 0.04 10^3/uL (0.00-0.10); ADD DIFF? NO; ADD MORPH? NO; ADD SCAN? NO; ATYPICAL LYMPHOCYTE FLAG 10 (0-99); FRAGMENT RBC FLAG 0 (0-99); HEMATOCRIT 36.7 % (38.0-47.0); HEMOGLOBIN 11.8 g/dL (12.6-16.3); LEFT SHIFT FLG 0 (0-99); LIPEMIA HEMOLYSIS FLAG 80 (0-99); MEAN CELL HEMOGLOBIN 30.3 pg (27.9-34.1); MEAN CELL HEMOGLOBIN CONCENTR. 32.2 g/dL (32.4-36.7); MEAN CELL VOLUME 94.3 fL (81.5-99.8); PLATELET CLUMPS FLAG 0 (0-99); PLATELET COUNT 200 10^3/uL (150-400); RED BLOOD CELL COUNT 3.89 10^6/uL (4.18-5.33); RED CELL DISTRIBUTION WIDTH 14.3 % (11.5-15.2)
[2017-05-16 05:22] LABS: ANION GAP 12 mEq/L (8-16); CALCIUM 9.3 mg/dL (8.5-10.4); CARBON DIOXIDE 19 mEq/l (22-31); CHLORIDE 114 mEq/L (97-110); CREATININE 0.7 mg/dL (0.6-1.0); GLOMERULAR FILTRATION RATE > 60; GLUCOSE 83 mg/dL (70-100); POTASSIUM 3.9 mEq/L (3.5-5.2); SODIUM 145 mEq/L (134-144)
[2017-05-16] MEDS ORDERED: LEVOTHYROXINE 50 MCG TAB PO SCH (06:00)
[2017-05-16] MEDS: FLUTICASONE/SALMETER 500/50MCG DISKUS IH SCH (08:43)
[2017-05-16] MEDS ORDERED: CHOLECALCIFEROL VIT D3 2,000 UNITS TAB/CAP PO SCH (09:00)
[2017-05-16] MEDS ORDERED: ASPIRIN 325 MG TAB PO SCH (09:00)
[2017-05-16] MEDS ORDERED: ATORVASTATIN CALCIUM 40 MG TAB PO SCH (09:00)
[2017-05-16] MEDS ORDERED: Herbals/Supplements -Info Only PO SCH (09:00)
[2017-05-16 10:58] VITALS: BP 152/66; PULSE 67; RESP 15; TEMP 98; O2SAT 90
[2017-05-16] MEDS ORDERED: IBUPROFEN 600 MG TAB PO PRN (11:35)
[2017-05-16] MEDS ORDERED: IBUPROFEN 600 MG TAB PO ONE (11:35)
[2017-05-16] MEDS ORDERED: ACETAMINOPHEN 500 MG TAB PO PRN (11:36)
[2017-05-16] MEDS ORDERED: NITROFURANTOIN MACROBID 100 MG CAP PO SCH (11:45)
--- NOTE | 2017-05-17 05:52 | GDS ---
[f rep st] DISCHARGE SUMMARY DISCHARGE DIAGNOSES: 1. Syncope. 2. Urinary tract infection. HISTORY: The patient is an 81-year-old female, who presented with a sudden syncopal event without w arning, hitting her head. Head CT was negative. Echocardiogram was unremarkable. She was observed on telemetry without any events. Troponins were negative. She was discovered to have a urinary tr act infection. Started her on Macrobid, and urine culture is sent prior to discharge and can be fol lowed up upon as an outpatient. She is having a little headache after her head injury, but otherwis e without any residual effect. She can discharge home to follow up with [facility] regarding further monitoring for possible cardiogenic syncope. Holter monitor could be considered. DISCHARGE MEDICATIONS: Please see computer record for full detailed list. New medications: Macrobid 100 mg p.o. b.i.d. for 7 days. ADDITIONAL DISCHARGE INSTRUCTIONS: 1. Urine culture pending at discharge. Please follow up through primary care. 2. Consider outpatient cardiology evaluation through [facility] for Holter monitoring. Patient was seen and examined by me on the day of discharge. /[id number]/MODL
== END 2017-05-16 13:51 | disposition home or self-care (01) ==
LOC: EDUNIT# → F2W 10:33
PROVIDERS: ADMIT Internal Medicine; ATTEND Internal Medicine
DX: R55 Syncope and collapse (principal); N39.0 Urinary tract infection, site not specified; B96.20 Unspecified Escherichia coli [E. coli] as the cause of diseases classified elsewhere; S09.90XA Unspecified injury of head, initial encounter; W19.XXXA Unspecified fall, initial encounter; Y92.098 Other place in other non-institutional residence as the place of occurrence of the external cause; E78.5 Hyperlipidemia, unspecified; J45.909 Unspecified asthma, uncomplicated; E03.9 Hypothyroidism, unspecified
CPT/HCPCS: 70450; 71020; 93005; 93306; 99285; G0378; 82947-QW